=== PATIENT | male | born 1960 | race Caucasian/White ===

== ENCOUNTER 2017-08-29 12:41 | Inpatient (IN) | payer MEDICAID ==
[~2017-08-29] VITALS: Ht 182.9 cm; Wt 95.8 kg
[2017-08-29] MEDS ORDERED: MORPHINE SULF INJ 2 MG/ML SYRINGE 1ML IV ONE ×4 (13:00→13:09)
[2017-08-29] MEDS ORDERED: ONDANSETRON HCL 4 MG/2 ML VIAL IV ONE ×2 (13:00→13:30)
[2017-08-29] MEDS ORDERED: ASPirin 81 mg TAB PO ONE (13:00)
[2017-08-29] MEDS ORDERED: MORPHINE SULF INJ 2 MG/ML SYRINGE 1ML ONE (13:04)
[2017-08-29 13:16] LABS: Basophils # (auto) 0.1 uL; Eosinophils # (auto) 0.1 uL; Neutrophils # (auto) 6.6 uL; Nucleated Red Blood Cells % 0.1 %
[2017-08-29 13:18] LABS: Basophils % (auto) 0.7 % (0.0-2.0); Eosinophils % (auto) 0.6 % (0.0-7.0); Hematocrit 53.8 % (41.0-53.0); Hemoglobin 18.7 g/dL (13.5-17.5); Lymphocytes % (auto) 28.2 % (10.0-50.0); Mean Corpuscular Hemoglobin 34.7 pg (28.0-32.0); Mean Corpuscular Hgb Conc. 34.8 g/dL (32.0-36.0); Mean Corpuscular Volume 99.7 fL (80.0-100.0); Mean Platelet Volume 8.6 fL (6.9-10.8); Monocytes # (auto) 0.8 uL; Monocytes % (auto) 7.7 % (0.0-12.0); Neutrophils % (auto) 62.8 % (37.0-80.0); Platelet Count (auto) 227 10^3/uL (140-450); White Blood Cell 10.6 10^3/uL (4.4-10.8)
[2017-08-29] MEDS ORDERED: HYDROmorphone HCL 2 MG/ML VL IV ONE ×2 (13:30→16:45)
[2017-08-29 13:33] LABS: INR 0.95 (0.9-1.15); Partial Thromboplastin Time 33.9 sec (22.64-33.71); Prothrombin Time 10.3 sec (9.37-12.3)
[2017-08-29] MEDS ORDERED: IOHEXOL 350 MG/ML 100ML IJ ONE (13:34)
[2017-08-29 13:36] LABS: Anion Gap 15 (5-15); Blood Urea Nitrogen 8 mg/dL (7-18); Carbon Dioxide 19 mmol/L (21-32); Chloride 101 mmol/L (98-107); Glucose 144 mg/dL (74-106); Sodium 135 mmol/L (136-145)
[2017-08-29 13:37] LABS: Albumin 3.4 g/dL (3.4-5.0); Alkaline Phosphatase 109 U/L (45-117); Aspartate Aminotransferase 13 U/L (15-37); BUN/Creatinine Ratio 8.3; Calcium 8.8 mg/dL (8.5-10.1); GFR African American 104 mL/min; GFR Non-African American 86 mL/min; Total Protein 8.1 g/dL (6.4-8.2)
[2017-08-29 13:38] LABS: Potassium 2.9 mmol/L (3.5-5.1)
[2017-08-29] MEDS: ESMOLOL HCL-NS 10MG/ML 250 ML IV SCH ×3 (13:45→16:00)
[2017-08-29] MEDS ORDERED: ESMOLOL HCL (10MG/ML) 10 ML VIAL IV ONE (13:45)
[2017-08-29] MEDS ORDERED: POTASSIUM CHL 20 Meq TABLET PO ONE ×2 (13:45→14:00)
[2017-08-29] MEDS ORDERED: POTASSIUM CHL 20MEQ/100ML 100 ML IV ONE ×2 (13:54→14:00)
[2017-08-29 14:01] LABS: Temperature: 21.9 C (20.0-25.0)
[2017-08-29] MEDS ORDERED: cefTRIAXone 1GM/50ML D5W 50 ML IV ONE (14:45)
[2017-08-29] MEDS: HEPARIN DRIP/D5W 100UNITS/ML 250 ML IV SCH (15:03)
[2017-08-29] MEDS ORDERED: SODIUM CHLORIDE 0.9% 1,000 ML IV SCH ×2 (15:03→22:00)
[2017-08-29] MEDS ORDERED: ACETAMINOPHEN 500 MG TAB PO PRN (15:15)
[2017-08-29] MEDS ORDERED: TEMAZEPAM 15 MG CAP PO PRN (15:15)
[2017-08-29] MEDS ORDERED: ALBUTEROL SULF 2.5 MG/0.5ML(0.5%) NEB SOLN NEB PRN (15:15)
[2017-08-29] MEDS ORDERED: DEXTROSE (50%) 50ML SYRG IV PRN (15:15)
[2017-08-29] MEDS ORDERED: NITROGLYCERIN 0.4 MG SL TAB SL PRN ×2 (15:15→18:30)
[2017-08-29] MEDS ORDERED: HEPARIN SODIUM (PORCINE) 5000 UNITS/ML 1ML VIAL IV ONE (15:15)
[2017-08-29] MEDS ORDERED: LORazepam 0.5 MG TAB PO PRN (15:15)
[2017-08-29] MEDS ORDERED: LACTULOSE 20Gm/30ML SOLN PO PRN (15:15)
[2017-08-29] MEDS ORDERED: MORPHINE SULF INJ 2 MG/ML SYRINGE 1ML IV PRN ×2 (15:15→18:30)
[2017-08-29 15:28] LABS: Lactic Acid w/Reflex 2.3 mmol/L (0.4-2.0)
[2017-08-29] MEDS ORDERED: LIDOCAINE 2%HCL (LOCAL ANESTH.) INJ 20ML MDV ONE (15:38)
[2017-08-29] MEDS ORDERED: IODIXANOL 320MG/ML 100ML BTL IV ONE (15:38)
[2017-08-29] MEDS ORDERED: KETOROLAC TROMETH 30 MG/ML 1ML VIAL ONE (16:21)
[2017-08-29] MEDS ORDERED: KETOROLAC TROMETH 30 MG/ML 1ML VIAL IV ONE (16:30)
[2017-08-29] MEDS: HYDROmorphone HCL 2 MG/ML VL ONE ×2 (16:33→16:41)
[2017-08-29] MEDS ORDERED: SODIUM CHL 0.9% 50 ML ONE (16:55)
[2017-08-29] MEDS ORDERED: ANGIOMAX 250 MG VIAL IV ONE (16:55)
[2017-08-29] MEDS ORDERED: ASPirin-EC 325mg tab PO ONE (17:45)
[2017-08-29] MEDS ORDERED: CLOPIDOGREL 300 MG TAB PO ONE (17:45)
[2017-08-29] MEDS ORDERED: ASPirin 325 MG TAB ONE (17:53)
[2017-08-29] MEDS ORDERED: ONDANSETRON HCL 4 MG/2 ML VIAL IV PRN (18:30)
[2017-08-29] MEDS ORDERED: ZOLPIDEM TARTRATE 5 MG TAB PO PRN (18:30)
[2017-08-29] MEDS: ALBUTEROL SULF 2.5 MG/0.5ML(0.5%) NEB SOLN NEB SCH ×2 (19:41→23:44)
[2017-08-29] MEDS: NITROGLYCERIN 0.2MG/HR TOPICAL PATCH TD SCH (20:16)
[2017-08-29] MEDS: PANTOPRAZOLE 40 MG TAB PO SCH (20:17)
[2017-08-29 20:22] VITALS: BP 124/76
[2017-08-29 20:30] VITALS: BP 171/107
[2017-08-29] MEDS: AZITHROMYCIN 500MG/D5W 250ML 250 ML IV SCH (21:26)
[2017-08-29] MEDS: SOD CHL 0.9%/ KCL 40MEQ 1,000 ML IV SCH (21:26)
[2017-08-29] MEDS: ACCU-CHEK COMFORT CURVE STRIP VI SCH ×2 (21:44→23:51)
[2017-08-29 21:45] VITALS: BP 122/75
[2017-08-29] MEDS: METOPROLOL TARTRATE 25 MG TAB PO SCH (22:09)
[2017-08-29] MEDS: ATORVASTATIN 20 MG TAB PO SCH (22:09)
[2017-08-29] MEDS: HYDROcodone-ACET 5/325MG TAB PO PRN (23:57)
[2017-08-30] MEDS: SOD CHL 0.9%/ KCL 40MEQ 1,000 ML IV SCH ×3 (01:45→21:45)
[2017-08-30] MEDS: MORPHINE SULF INJ 2 MG/ML SYRINGE 1ML IV PRN ×5 (02:10→20:23)
[2017-08-30 03:33] LABS: REFLEX LACTIC ACID YES OR NO YES
[2017-08-30 05:00] VITALS: BP 128/79
[2017-08-30] MEDS ORDERED: SODIUM CHLORIDE 0.9 % NEB SOLN 3ML NEB ONE (05:50)
[2017-08-30] MEDS: ACCU-CHEK COMFORT CURVE STRIP VI SCH ×3 (06:00→18:00)
[2017-08-30] MEDS: ALBUTEROL SULF 2.5 MG/0.5ML(0.5%) NEB SOLN NEB SCH ×3 (07:30→19:24)
[2017-08-30] MEDS: cefTRIAXone 1GM/50ML D5W 50 ML IV SCH (08:57)
[2017-08-30 09:00] VITALS: BP 134/88
[2017-08-30] MEDS ORDERED: CLOPIDOGREL BISULFATE 75 MG TAB PO ONE (10:00)
[2017-08-30] MEDS ORDERED: ASPirin 81 mg TAB PO SCH (10:00)
[2017-08-30] MEDS: CLOPIDOGREL BISULFATE 75 MG TAB PO SCH (10:26)
[2017-08-30] MEDS: PANTOPRAZOLE 40 MG TAB PO SCH (10:26)
[2017-08-30] MEDS: ASPirin 81 mg TAB PO SCH (10:27)
[2017-08-30] MEDS: LORazepam 0.5 MG TAB PO PRN ×2 (10:27→21:46)
[2017-08-30] MEDS: METOPROLOL TARTRATE 25 MG TAB PO SCH ×2 (10:27→21:47)
[2017-08-30] MEDS: HYDROcodone-ACET 5/325MG TAB PO PRN ×2 (10:28→19:35)
[2017-08-30] MEDS: NITROGLYCERIN 0.2MG/HR TOPICAL PATCH TD SCH (10:29)
[2017-08-30] MEDS: AZITHROMYCIN 500MG/D5W 250ML 250 ML IV SCH (10:30)
[2017-08-30 11:33] LABS: Cholesterol 121 mg/dL (< 200); HDL Cholesterol 39 mg/dL (40-59); LDL Cholesterol 81 mg/dL (< 100); Triglycerides 77 mg/dL (< 150)
[2017-08-30 13:00] VITALS: BP 142/86
[2017-08-30] MEDS: HEPARIN DRIP/D5W 100UNITS/ML 250 ML IV SCH (15:03)
[2017-08-30 16:30] LABS: Albumin 2.7 g/dL (3.4-5.0); BUN/Creatinine Ratio 9.4; Bilirubin, Total 0.5 mg/dL (0.2-1.0); Calcium 8.4 mg/dL (8.5-10.1); Total Protein 6.6 g/dL (6.4-8.2)
[2017-08-30 16:37] LABS: Basophils # (auto) 0 uL; Eosinophils # (auto) 0.2 uL; Hemoglobin 15.9 g/dL (13.5-17.5); Lymphocytes # (auto) 2.1 uL; Monocytes # (auto) 0.6 uL; Platelet Count (auto) 188 10^3/uL (140-450); Red Cell Distribution Width 13.8 % (11.8-14.3); White Blood Cell 7.1 10^3/uL (4.4-10.8)
[2017-08-30 16:40] LABS: Basophils % (auto) 0.3 % (0.0-2.0); Eosinophils % (auto) 3.3 % (0.0-7.0); Hematocrit 47.3 % (41.0-53.0); Lymphocytes % (auto) 29.3 % (10.0-50.0); Mean Corpuscular Hemoglobin 34.2 pg (28.0-32.0); Mean Corpuscular Hgb Conc. 33.6 g/dL (32.0-36.0); Mean Corpuscular Volume 101.8 fL (80.0-100.0); Mean Platelet Volume 8.2 fL (6.9-10.8); Monocytes % (auto) 8.6 % (0.0-12.0); Neutrophils # (auto) 4.2 uL; Neutrophils % (auto) 58.5 % (37.0-80.0); Nucleated Red Blood Cells % 0.1 %
[2017-08-30 17:00] VITALS: BP 157/99
[2017-08-30 19:20] LABS: Macrocytosis Slight; Platelet Estimate Adequate
[2017-08-30 20:00] VITALS: BP 148/97
[2017-08-30] MEDS: IBUPROFEN 600 MG TAB PO SCH (21:46)
[2017-08-30] MEDS: COLCHICINE 0.6 MG CAP PO SCH (21:46)
[2017-08-30] MEDS: ATORVASTATIN 20 MG TAB PO SCH (21:46)
[2017-08-30 22:30] VITALS: BP 148/87
[2017-08-31] MEDS: ACCU-CHEK COMFORT CURVE STRIP VI SCH ×3 (00:22→12:00)
[2017-08-31] MEDS: MORPHINE SULF INJ 2 MG/ML SYRINGE 1ML IV PRN ×2 (00:26→04:27)
[2017-08-31] MEDS: ALBUTEROL SULF 2.5 MG/0.5ML(0.5%) NEB SOLN NEB SCH ×2 (00:36→07:35)
[2017-08-31 05:00] VITALS: BP 148/93
[2017-08-31] MEDS: IBUPROFEN 600 MG TAB PO SCH (05:55)
[2017-08-31 06:13] LABS: Basophils # (auto) 0 uL; Eosinophils # (auto) 0.3 uL; Mean Corpuscular Volume 100.2 fL (80.0-100.0); Monocytes # (auto) 0.5 uL
[2017-08-31 06:15] LABS: Basophils % (auto) 0.4 % (0.0-2.0); Eosinophils % (auto) 5.3 % (0.0-7.0); Hemoglobin 14.8 g/dL (13.5-17.5); Lymphocytes % (auto) 32.5 % (10.0-50.0); Mean Corpuscular Hemoglobin 34.6 pg (28.0-32.0); Mean Corpuscular Hgb Conc. 34.5 g/dL (32.0-36.0); Mean Platelet Volume 8.3 fL (6.9-10.8); Monocytes % (auto) 8.1 % (0.0-12.0); Neutrophils # (auto) 3.2 uL; Neutrophils % (auto) 53.7 % (37.0-80.0); Platelet Count (auto) 180 10^3/uL (140-450)
[2017-08-31 07:08] LABS: Albumin 2.7 g/dL (3.4-5.0); BUN/Creatinine Ratio 8.2; Bilirubin, Total 0.6 mg/dL (0.2-1.0); Calcium 8.4 mg/dL (8.5-10.1); Potassium 3.8 mmol/L (3.5-5.1); Total Protein 6.3 g/dL (6.4-8.2)
[2017-08-31] MEDS: SOD CHL 0.9%/ KCL 40MEQ 1,000 ML IV SCH (07:45)
[2017-08-31] MEDS ORDERED: MORPHINE SULF INJ 2 MG/ML SYRINGE 1ML IV ONE (08:50)
[2017-08-31] MEDS: cefTRIAXone 1GM/50ML D5W 50 ML IV SCH (08:50)
[2017-08-31] MEDS: COLCHICINE 0.6 MG CAP PO SCH (08:55)
[2017-08-31] MEDS: METOPROLOL TARTRATE 25 MG TAB PO SCH (08:55)
[2017-08-31] MEDS: NITROGLYCERIN 0.2MG/HR TOPICAL PATCH TD SCH (08:55)
[2017-08-31] MEDS: CLOPIDOGREL BISULFATE 75 MG TAB PO SCH (08:55)
[2017-08-31] MEDS: PANTOPRAZOLE 40 MG TAB PO SCH (08:55)
[2017-08-31] MEDS: ASPirin 81 mg TAB PO SCH (08:55)
[2017-08-31 09:00] VITALS: BP 146/103
[2017-08-31] MEDS: LORazepam 0.5 MG TAB PO PRN (09:17)
[2017-08-31] MEDS: AZITHROMYCIN 500MG/D5W 250ML 250 ML IV SCH (10:55)
== END 2017-08-31 13:00 | disposition home or self-care (01) | DRG 144 ==
LOC: ER 12:41 → TELE-CENTR 12:42 → CENTRAL 08-31 05:44
PROVIDERS: ADMIT Internal Medicine Cardiovascular Disease; ATTEND Internal Medicine
PROC: 4A023N7 Measurement of Cardiac Sampling and Pressure, Left Heart, Percutaneous Approach (ICD-10-PCS; principal; 2017-08-29)
PROC: B41F1ZZ Fluoroscopy of Right Lower Extremity Arteries using Low Osmolar Contrast (ICD-10-PCS; 2017-08-29)
PROC: B2111ZZ Fluoroscopy of Multiple Coronary Arteries using Low Osmolar Contrast (ICD-10-PCS; 2017-08-29)
PROC: B240ZZ3 Ultrasonography of Single Coronary Artery, Intravascular (ICD-10-PCS; 2017-08-29)
DX: J40 Bronchitis, not specified as acute or chronic (principal); J18.9 Pneumonia, unspecified organism; I10 Essential (primary) hypertension; R09.1 Pleurisy; J21.9 Acute bronchiolitis, unspecified; E87.6 Hypokalemia; I25.10 Atherosclerotic heart disease of native coronary artery without angina pectoris; E78.5 Hyperlipidemia, unspecified; F17.210 Nicotine dependence, cigarettes, uncomplicated; F41.9 Anxiety disorder, unspecified; R00.0 Tachycardia, unspecified; R73.03 Prediabetes; Z79.02 Long term (current) use of antithrombotics/antiplatelets; Z79.82 Long term (current) use of aspirin; Z91.14 Patient's other noncompliance with medication regimen; Z95.5 Presence of coronary angioplasty implant and graft; Z82.49 Family history of ischemic heart disease and other diseases of the circulatory system; I25.2 Old myocardial infarction; Z91.19 Patient's noncompliance with other medical treatment and regimen
CPT/HCPCS: 92978; 93458; 96365; 96375; 99285; G0278; 36415; 71010; 71275; 80053; 80061; 82550; 82962; 83036; 83605; 83735; 83880; 84443; 84484; 85025; 85610; 85652; 85730; 86141; 87040; 93005; 93306; 94640; 99152; 99153; C1887; J0696; J1885; J2405; J3480; J3490; Q9967

== ENCOUNTER 2017-09-27 15:02 | Emergency (ER) | payer MEDICAID ==
[~2017-09-27] VITALS: Ht 182.9 cm; Wt 90.7 kg
[2017-09-27 16:45] LABS: Alanine Aminotransferase 41 U/L (16-61); Albumin 3.6 g/dL (3.4-5.0); Alkaline Phosphatase 95 U/L (45-117); Anion Gap 5 (5-15); Aspartate Aminotransferase 29 U/L (15-37); BUN/Creatinine Ratio 10.4; Bilirubin, Total 0.4 mg/dL (0.2-1.0); Blood Urea Nitrogen 11 mg/dL (7-18); Calcium 8.3 mg/dL (8.5-10.1); Carbon Dioxide 26 mmol/L (21-32); Chloride 108 mmol/L (98-107); GFR African American 93 mL/min; GFR Non-African American 77 mL/min; Glucose 96 mg/dL (74-106); Magnesium 1.9 mg/dL (1.6-2.6); Sodium 139 mmol/L (136-145); Total Protein 7.6 g/dL (6.4-8.2)
[2017-09-27 16:47] LABS: INR 0.95 (0.9-1.15); Partial Thromboplastin Time 30.1 sec (22.64-33.71); Prothrombin Time 10.3 sec (9.37-12.3)
[2017-09-27 16:50] LABS: Basophils # (auto) 0 uL; Basophils % (auto) 0.1 % (0.0-2.0); Eosinophils # (auto) 0 uL; Eosinophils % (auto) 0.2 % (0.0-7.0); Hematocrit 43.2 % (41.0-53.0); Hemoglobin 14.8 g/dL (13.5-17.5); Lymphocytes # (auto) 0.8 uL; Lymphocytes % (auto) 13.1 % (10.0-50.0); Mean Corpuscular Hemoglobin 33.8 pg (28.0-32.0); Mean Corpuscular Hgb Conc. 34.2 g/dL (32.0-36.0); Mean Corpuscular Volume 98.8 fL (80.0-100.0); Monocytes # (auto) 0.4 uL; Monocytes % (auto) 6.2 % (0.0-12.0); Neutrophils # (auto) 4.7 uL; Neutrophils % (auto) 80.4 % (37.0-80.0); Platelet Count (auto) 165 10^3/uL (140-450); Red Blood Cells 4.37 10^6/uL (4.5-5.90); Red Cell Distribution Width 13.4 % (11.8-14.3); White Blood Cell 5.9 10^3/uL (4.4-10.8)
[2017-09-27 22:56] VITALS: BP 126/82
[2017-09-27] MEDS ORDERED: LORazepam 0.5 MG TAB PO ONE (23:00)
[2017-09-27] MEDS ORDERED: ONDANSETRON ODT 4 MG TAB PO ONE (23:15)
== END 2017-09-27 23:47 | disposition left against medical advice (07) ==
LOC: ER 15:06
DX: R07.89 Other chest pain (principal); I25.10 Atherosclerotic heart disease of native coronary artery without angina pectoris; E78.5 Hyperlipidemia, unspecified; I10 Essential (primary) hypertension; R11.2 Nausea with vomiting, unspecified; F17.210 Nicotine dependence, cigarettes, uncomplicated; Z98.61 Coronary angioplasty status
CPT/HCPCS: 36415; 71020; 80053; 83735; 84484; 85025; 85610; 85730; 93005; 99285; Q0162

== ENCOUNTER 2017-11-09 23:06 | Emergency (ER) | payer MEDICAID ==
[~2017-11-09] VITALS: Ht 182.9 cm; Wt 99.8 kg
[2017-11-09 23:17] VITALS: BP 112/72
[2017-11-10 01:31] LABS: Basophils # (auto) 0 uL; Basophils % (auto) 0.4 % (0.0-2.0); Eosinophils # (auto) 0.2 uL; Eosinophils % (auto) 2.4 % (0.0-7.0); Mean Platelet Volume 8.4 fL (6.9-10.8); Monocytes # (auto) 0.6 uL
[2017-11-10 01:33] LABS: Hematocrit 42.5 % (41.0-53.0); Hemoglobin 14.4 g/dL (13.5-17.5); Lymphocytes # (auto) 3.4 uL; Lymphocytes % (auto) 44.3 % (10.0-50.0); Mean Corpuscular Hemoglobin 34.6 pg (28.0-32.0); Mean Corpuscular Volume 101.8 fL (80.0-100.0); Monocytes % (auto) 8.2 % (0.0-12.0); Neutrophils # (auto) 3.4 uL; Neutrophils % (auto) 44.7 % (37.0-80.0); Nucleated Red Blood Cells % 0.2 %; Platelet Count (auto) 232 10^3/uL (140-450); Red Cell Distribution Width 17.4 % (11.8-14.3); White Blood Cell 7.6 10^3/uL (4.4-10.8)
[2017-11-10 01:43] LABS: Albumin 3.6 g/dL (3.4-5.0); Calcium 8.4 mg/dL (8.5-10.1); Magnesium 2.7 mg/dL (1.6-2.6); Potassium 3.3 mmol/L (3.5-5.1)
[2017-11-10 01:46] LABS: Bilirubin, Total 0.2 mg/dL (0.2-1.0); Total Protein 7.5 g/dL (6.4-8.2)
[2017-11-10 01:50] LABS: INR 0.92 (0.9-1.15); Partial Thromboplastin Time 27.6 sec (22.64-33.71)
[2017-11-10 02:01] LABS: B-Type Natriuretic Peptide 28.7 pg/mL (0-100)
[2017-11-10 02:02] LABS: Temperature: 20.9 C (20.0-25.0)
== END 2017-11-10 02:53 | disposition left against medical advice (07) ==
LOC: EDBD 23:06 → EDUNIT# 23:06 → ER 23:06
DX: R07.9 Chest pain, unspecified (principal); Z53.21 Procedure and treatment not carried out due to patient leaving prior to being seen by health care provider
CPT/HCPCS: 36415; 71010; 80053; 83735; 83880; 84443; 84484; 85025; 85379; 85610; 85730; 93005

== ENCOUNTER 2018-02-18 21:47 | Emergency (ER) | payer MEDICAID ==
[~2018-02-18] VITALS: Ht 185.4 cm; Wt 99.8 kg
[2018-02-18 21:50] VITALS: BP 136/77
[2018-02-18 22:33] LABS: Basophils # (auto) 0 uL; Eosinophils # (auto) 0.2 uL; Hemoglobin 13.5 g/dL (13.5-17.5); Mean Corpuscular Hgb Conc. 33.7 g/dL (32.0-36.0); White Blood Cell 6.4 10^3/uL (4.4-10.8)
[2018-02-18 22:34] LABS: Basophils % (auto) 0.2 % (0.0-2.0); Eosinophils % (auto) 3.6 % (0.0-7.0); Hematocrit 40.2 % (41.0-53.0); Lymphocytes # (auto) 1.9 uL; Lymphocytes % (auto) 29.2 % (10.0-50.0); Mean Corpuscular Hemoglobin 34.5 pg (28.0-32.0); Mean Corpuscular Volume 102.4 fL (80.0-100.0); Monocytes # (auto) 0.5 uL; Monocytes % (auto) 7.1 % (0.0-12.0); Neutrophils # (auto) 3.8 uL; Neutrophils % (auto) 59.9 % (37.0-80.0); Platelet Count (auto) 165 10^3/uL (140-450); Red Blood Cells 3.92 10^6/uL (4.5-5.90); Red Cell Distribution Width 14.1 % (11.8-14.3)
[2018-02-18 22:40] LABS: Urine Bacteria NONE SEEN /hpf (None Seen); Urine Blood Negative /uL (Negative); Urine Specific Gravity 1.005 (1.001-1.035); Urine WBC 1 /hpf (0 - 3)
[2018-02-18 22:50] LABS: INR 0.92 (0.9-1.15); Partial Thromboplastin Time 25.9 sec (22.64-33.71)
[2018-02-18 22:53] LABS: Albumin 3.4 g/dL (3.4-5.0); Bilirubin, Total 0.5 mg/dL (0.2-1.0); Calcium 8.1 mg/dL (8.5-10.1); Magnesium 2.5 mg/dL (1.6-2.6); Potassium 3.9 mmol/L (3.5-5.1)
[2018-02-18 23:02] LABS: Amphetamine Screen, Urine POSITIVE (NEGATIVE); Barbiturate Scree,Urine NEGATIVE (NEGATIVE); Benzodiazephine Screen, Urine NEGATIVE (NEGATIVE); Cannabinoid Screen, Urine POSITIVE (NEGATIVE); Cocaine Screen, Urine NEGATIVE (NEGATIVE); Opiate Scree,Urine NEGATIVE (NEGATIVE); Phencyclidine Screen, Urine NEGATIVE (NEGATIVE)
== END 2018-02-18 22:46 | disposition left against medical advice (07) ==
LOC: ER 21:47 → EDBD 21:47 → ER 22:46
DX: R07.89 Other chest pain (principal); Z53.21 Procedure and treatment not carried out due to patient leaving prior to being seen by health care provider
CPT/HCPCS: 36415; 80053; 80307; 80320; 81001; 83735; 83880; 84484; 85025; 85610; 85730

== ENCOUNTER 2018-03-06 20:00 | Emergency (ER) | payer MEDICAID ==
[~2018-03-06] VITALS: Ht 182.9 cm; Wt 90.7 kg
[2018-03-06 20:04] VITALS: BP 109/74
[2018-03-06] MEDS ORDERED: ASPirin 81 mg TAB PO ONE (20:15)
[2018-03-06] MEDS ORDERED: SODIUM CHLORIDE 0.9% 1,000 ML IV ONE (20:15)
[2018-03-06 21:12] LABS: Basophils # (auto) 0 uL; Basophils % (auto) 0.5 % (0.0-2.0); Hemoglobin 12.9 g/dL (13.5-17.5); Mean Corpuscular Hemoglobin 34.3 pg (28.0-32.0); Mean Corpuscular Hgb Conc. 33.5 g/dL (32.0-36.0); Mean Corpuscular Volume 102.5 fL (80.0-100.0); Monocytes # (auto) 0.4 uL; Nucleated Red Blood Cells % 0.1 %
[2018-03-06 21:14] LABS: Eosinophils # (auto) 0.3 uL; Eosinophils % (auto) 3.4 % (0.0-7.0); Hematocrit 38.7 % (41.0-53.0); Lymphocytes # (auto) 2.9 uL; Lymphocytes % (auto) 36.9 % (10.0-50.0); Monocytes % (auto) 5.3 % (0.0-12.0); Neutrophils # (auto) 4.3 uL; Neutrophils % (auto) 53.9 % (37.0-80.0); Platelet Count (auto) 206 10^3/uL (140-450); Red Blood Cells 3.77 10^6/uL (4.5-5.90)
[2018-03-06 21:27] LABS: INR 0.9 (0.9-1.15); Partial Thromboplastin Time 28.5 sec (22.64-33.71); Prothrombin Time 9.8 sec (9.37-12.3)
[2018-03-06 21:30] LABS: Albumin 3.3 g/dL (3.4-5.0); Anion Gap 10 (5-15); Blood Urea Nitrogen 21 mg/dL (7-18); Calcium 8.6 mg/dL (8.5-10.1); Carbon Dioxide 22 mmol/L (21-32); Chloride 114 mmol/L (98-107); Glucose 96 mg/dL (74-106); Potassium 3.3 mmol/L (3.5-5.1); Sodium 146 mmol/L (136-145)
[2018-03-06 21:32] LABS: Alanine Aminotransferase 41 U/L (16-61); Aspartate Aminotransferase 41 U/L (15-37); BUN/Creatinine Ratio 19.4; GFR African American 91 mL/min; GFR Non-African American 75 mL/min
[2018-03-06 21:37] LABS: Alkaline Phosphatase 87 U/L (45-117); Bilirubin, Total 0.3 mg/dL (0.2-1.0)
== END 2018-03-07 00:10 | disposition left against medical advice (07) ==
LOC: EDBD 20:00 → ER 20:05
DX: R07.9 Chest pain, unspecified (principal); I10 Essential (primary) hypertension; I25.10 Atherosclerotic heart disease of native coronary artery without angina pectoris; F17.210 Nicotine dependence, cigarettes, uncomplicated; E78.5 Hyperlipidemia, unspecified; Z59.0 Homelessness
CPT/HCPCS: 36415; 71045; 80053; 80320; 83880; 84484; 85025; 85610; 85730; 93005; 94761

== ENCOUNTER 2018-04-16 01:58 | Emergency (ER) | payer MEDICAID, OTHER ==
[~2018-04-16] VITALS: Ht 182.9 cm; Wt 90.7 kg
[2018-04-16 02:34] LABS: Basophils # (auto) 0 uL; Eosinophils # (auto) 0.2 uL; Eosinophils % (auto) 3.6 % (0.0-7.0); Hemoglobin 14.4 g/dL (13.5-17.5); Lymphocytes # (auto) 2.9 uL; Monocytes # (auto) 0.4 uL; Neutrophils # (auto) 2.5 uL
[2018-04-16 02:36] LABS: Basophils % (auto) 0.5 % (0.0-2.0); Hematocrit 42.2 % (41.0-53.0); Lymphocytes % (auto) 47.4 % (10.0-50.0); Mean Corpuscular Hemoglobin 35.2 pg (28.0-32.0); Mean Corpuscular Hgb Conc. 34.1 g/dL (32.0-36.0); Mean Corpuscular Volume 103.3 fL (80.0-100.0); Monocytes % (auto) 7.1 % (0.0-12.0); Neutrophils % (auto) 41.4 % (37.0-80.0); Platelet Count (auto) 209 10^3/uL (140-450); Red Blood Cells 4.09 10^6/uL (4.5-5.90); Red Cell Distribution Width 16.1 % (11.8-14.3); White Blood Cell 6.1 10^3/uL (4.4-10.8)
[2018-04-16 02:56] LABS: Alanine Aminotransferase 30 U/L (16-61); Albumin 3.4 g/dL (3.4-5.0); Anion Gap 8 (5-15); Aspartate Aminotransferase 27 U/L (15-37); BUN/Creatinine Ratio 10.3; Blood Urea Nitrogen 10 mg/dL (7-18); Calcium 8.3 mg/dL (8.5-10.1); Carbon Dioxide 22 mmol/L (21-32); Chloride 115 mmol/L (98-107); GFR African American 103 mL/min; GFR Non-African American 85 mL/min; Glucose 101 mg/dL (74-106); Magnesium 2.2 mg/dL (1.6-2.6); Potassium 3.6 mmol/L (3.5-5.1); Sodium 145 mmol/L (136-145)
[2018-04-16] MEDS ORDERED: ONDANSETRON HCL 4 MG/2 ML VIAL IV ONE (03:00)
[2018-04-16] MEDS ORDERED: MORPHINE SULFATE 8mg/ml INJ SDV IV ONE (03:00)
[2018-04-16 03:04] LABS: Alkaline Phosphatase 83 U/L (45-117); Bilirubin, Total 0.3 mg/dL (0.2-1.0); Total Protein 7.5 g/dL (6.4-8.2)
[2018-04-16 07:30] VITALS: BP 107/66
== END 2018-04-16 07:56 | disposition home or self-care (01) ==
LOC: EDBD 01:58 → ER 02:03
DX: R07.89 Other chest pain (principal); E78.5 Hyperlipidemia, unspecified; I10 Essential (primary) hypertension; I25.10 Atherosclerotic heart disease of native coronary artery without angina pectoris; F17.210 Nicotine dependence, cigarettes, uncomplicated; Z59.0 Homelessness
CPT/HCPCS: 36415; 71045; 80053; 83735; 83880; 84484; 85025; 93005; 94761; 96374; 96375; 99285; J2270; J2405

== ENCOUNTER 2018-10-07 00:35 | Emergency (ER) | payer MEDICAID ==
[~2018-10-07] VITALS: Ht 182.9 cm; Wt 90.7 kg
[2018-10-07] MEDS ORDERED: ASPirin 81 mg TAB PO ONE (01:00)
[2018-10-07 01:54] LABS: Eosinophils # (auto) 0.1 uL; Monocytes # (auto) 0.5 uL; Red Cell Distribution Width 14.1 % (11.8-14.3); White Blood Cell 6.9 10^3/uL (4.4-10.8)
[2018-10-07 01:56] LABS: Basophils # (auto) 0 uL; Basophils % (auto) 0.5 % (0.0-2.0); Eosinophils % (auto) 1.7 % (0.0-7.0); Hematocrit 44.3 % (41.0-53.0); Hemoglobin 14.8 g/dL (13.5-17.5); Lymphocytes # (auto) 2.4 uL; Lymphocytes % (auto) 35.2 % (10.0-50.0); Mean Corpuscular Hemoglobin 35.8 pg (28.0-32.0); Mean Corpuscular Hgb Conc. 33.5 g/dL (32.0-36.0); Mean Corpuscular Volume 106.9 fL (80.0-100.0); Monocytes % (auto) 7.5 % (0.0-12.0); Neutrophils # (auto) 3.8 uL; Neutrophils % (auto) 55.1 % (37.0-80.0); Platelet Count (auto) 183 10^3/uL (140-450); Red Blood Cells 4.15 10^6/uL (4.5-5.90)
[2018-10-07] MEDS ORDERED: ONDANSETRON HCL 4 MG/2 ML VIAL IV ONE (02:00)
[2018-10-07] MEDS ORDERED: MORPHINE SULFATE 4 MG/ML SYR/VIAL IV ONE ×2 (02:00→05:15)
[2018-10-07 02:08] LABS: INR 0.88 (0.9-1.15); Prothrombin Time 9.5 sec (9.27-12.13)
[2018-10-07 02:12] LABS: Alanine Aminotransferase 94 U/L (16-61); Albumin 3.3 g/dL (3.4-5.0); Anion Gap 8 (5-15); Aspartate Aminotransferase 85 U/L (15-37); BUN/Creatinine Ratio 21.9; Blood Urea Nitrogen 23 mg/dL (7-18); Calcium 9.6 mg/dL (8.5-10.1); Carbon Dioxide 25 mmol/L (21-32); Chloride 111 mmol/L (98-107); GFR African American 94 mL/min; GFR Non-African American 77 mL/min; Glucose 79 mg/dL (74-106); Magnesium 2.4 mg/dL (1.6-2.6); Potassium 3.7 mmol/L (3.5-5.1); Sodium 144 mmol/L (136-145)
[2018-10-07 02:17] LABS: Alkaline Phosphatase 77 U/L (45-117); Bilirubin, Total 0.3 mg/dL (0.2-1.0); Total Protein 7.1 g/dL (6.4-8.2)
[2018-10-07] MEDS ORDERED: cefTRIAXone 1GM/50ML D5W 50 ML IV ONE (02:45)
[2018-10-07] MEDS ORDERED: LIDOCAINE 1%HCL (LOCAL ANESTH) 10 ML MDV ONE (04:31)
[2018-10-07] MEDS ORDERED: LIDOCAINE 1% HCL (LOCAL ANESTH.) INJ 20ML MDV IJ ONE (04:45)
[2018-10-07 05:41] LABS: Urine Amorphous Crystal FEW /hpf (None Seen); Urine Bacteria FEW /hpf (None Seen); Urine Blood Negative /uL (Negative); Urine Specific Gravity 1.011 (1.001-1.035); Urine WBC <1 /hpf (0 - 3)
[2018-10-07 05:59] LABS: Amphetamine Screen, Urine NEGATIVE (NEGATIVE); Barbiturate Scree,Urine NEGATIVE (NEGATIVE); Benzodiazephine Screen, Urine NEGATIVE (NEGATIVE); Cannabinoid Screen, Urine POSITIVE (NEGATIVE); Cocaine Screen, Urine NEGATIVE (NEGATIVE); Opiate Scree,Urine NEGATIVE (NEGATIVE); Phencyclidine Screen, Urine NEGATIVE (NEGATIVE)
[2018-10-07 06:00] VITALS: BP 152/100
== END 2018-10-07 06:19 | disposition home or self-care (01) ==
LOC: ER 00:35 → EDBD 00:35 → ER 06:19
DX: S51.812A Laceration without foreign body of left forearm, initial encounter (principal); R07.89 Other chest pain; I25.10 Atherosclerotic heart disease of native coronary artery without angina pectoris; E78.5 Hyperlipidemia, unspecified; I10 Essential (primary) hypertension; F17.210 Nicotine dependence, cigarettes, uncomplicated; F12.90 Cannabis use, unspecified, uncomplicated; Z59.0 Homelessness; Z98.61 Coronary angioplasty status; Y07.02 Wife, perpetrator of maltreatment and neglect; Y93.89 Activity, other specified; Y99.8 Other external cause status; Y92.89 Other specified places as the place of occurrence of the external cause
CPT/HCPCS: 12002; 36415; 71045; 80053; 80307; 81001; 83735; 84484; 85025; 85610; 85730; 93005; 94761; 96365; 96375; 96376; 99285; J0696; J2001; J2270; J2405

== ENCOUNTER 2018-10-24 08:43 | Emergency (ER) | payer MEDICAID ==
[~2018-10-24] VITALS: Ht 190.5 cm; Wt 90.7 kg
[2018-10-24 08:59] VITALS: BP 126/81
== END 2018-10-24 09:26 | disposition home or self-care (01) ==
LOC: ER 08:43
DX: S51.812D Laceration without foreign body of left forearm, subsequent encounter (principal); E78.5 Hyperlipidemia, unspecified; I10 Essential (primary) hypertension; I25.810 Atherosclerosis of coronary artery bypass graft(s) without angina pectoris; F17.210 Nicotine dependence, cigarettes, uncomplicated; F12.10 Cannabis abuse, uncomplicated; X58.XXXD Exposure to other specified factors, subsequent encounter

== ENCOUNTER 2018-11-13 18:02 | Emergency (ER) | payer MEDICAID ==
[~2018-11-13] VITALS: Ht 180.3 cm; Wt 95.3 kg
[2018-11-13] MEDS ORDERED: SODIUM CHLORIDE 0.9% 1,000 ML IVB ONE (18:23)
[2018-11-13] MEDS ORDERED: SODIUM CHLORIDE 0.9% 1,000 ML IV ONE (22:45)
[2018-11-13] MEDS ORDERED: IPRATROPIUM BROM 0.5 MG/2.5ML INH SOL NEB ONE (22:45)
[2018-11-13] MEDS ORDERED: ALBUTEROL SULF 2.5 MG/0.5ML(0.5%) NEB SOLN NEB ONE (22:45)
[2018-11-13 23:01] LABS: Eosinophils # (auto) 0.2 uL; Hemoglobin 14.8 g/dL (13.5-17.5); Monocytes # (auto) 0.5 uL; Nucleated Red Blood Cells % 0.1 %
[2018-11-13 23:04] LABS: Basophils # (auto) 0 uL; Basophils % (auto) 0.7 % (0.0-2.0); Eosinophils % (auto) 3.1 % (0.0-7.0); Hematocrit 43.6 % (41.0-53.0); Lymphocytes # (auto) 2.3 uL; Lymphocytes % (auto) 37.1 % (10.0-50.0); Mean Corpuscular Hemoglobin 36.5 pg (28.0-32.0); Mean Corpuscular Volume 107.3 fL (80.0-100.0); Neutrophils # (auto) 3.2 uL; Neutrophils % (auto) 51.1 % (37.0-80.0); Platelet Count (auto) 189 10^3/uL (140-450); Red Blood Cells 4.07 10^6/uL (4.5-5.90); Red Cell Distribution Width 13.4 % (11.8-14.3); White Blood Cell 6.3 10^3/uL (4.4-10.8)
[2018-11-13] MEDS ORDERED: METOPROLOL TARTRATE 1MG/1ML-5ML VIAL IV ONE (23:15)
[2018-11-13 23:24] LABS: Albumin 3.2 g/dL (3.4-5.0); Anion Gap 13 (5-15); BUN/Creatinine Ratio 14.9; Blood Urea Nitrogen 15 mg/dL (7-18); Calcium 8.3 mg/dL (8.5-10.1); Carbon Dioxide 22 mmol/L (21-32); Chloride 106 mmol/L (98-107); GFR African American 98 mL/min; GFR Non-African American 81 mL/min; Glucose 98 mg/dL (74-106); Magnesium 1.6 mg/dL (1.6-2.6); Potassium 3.5 mmol/L (3.5-5.1); Sodium 141 mmol/L (136-145)
[2018-11-13 23:29] LABS: Alanine Aminotransferase 91 U/L (16-61); Alkaline Phosphatase 82 U/L (45-117); Aspartate Aminotransferase 74 U/L (15-37); Bilirubin, Total 0.2 mg/dL (0.2-1.0)
[2018-11-13 23:47] LABS: INR 0.88 (0.9-1.15); Partial Thromboplastin Time 28.4 sec (23.78-33.04); Prothrombin Time 9.5 sec (9.27-12.13)
[2018-11-14] MEDS ORDERED: DILTIAZEM HCL 25 MG/5 ML VIAL IV ONE
[2018-11-14] MEDS ORDERED: DILTIAZEM HCL 120MG ER CAP PO ONE
[2018-11-14] MEDS ORDERED: IOHEXOL 350 MG/ML 100ML IJ ONE (02:17)
[2018-11-14 02:24] LABS: Urine Bacteria NONE SEEN /hpf (None Seen); Urine Blood Negative /uL (Negative); Urine Specific Gravity 1.006 (1.001-1.035); Urine WBC 1 /hpf (0 - 3)
[2018-11-14 02:36] LABS: Amphetamine Screen, Urine NEGATIVE (NEGATIVE); Barbiturate Scree,Urine NEGATIVE (NEGATIVE); Benzodiazephine Screen, Urine NEGATIVE (NEGATIVE); Cannabinoid Screen, Urine POSITIVE (NEGATIVE); Cocaine Screen, Urine NEGATIVE (NEGATIVE); Opiate Scree,Urine NEGATIVE (NEGATIVE); Phencyclidine Screen, Urine NEGATIVE (NEGATIVE)
[2018-11-14] MEDS ORDERED: NITROGLYCERIN 0.4 MG SL TAB SL ONE (06:15)
[2018-11-14 07:30] VITALS: BP 166/96
[2018-11-14] MEDS ORDERED: THIAMINE INJ 100 MG, MULTIPLE VITAMIN 10 ML, FOLIC ACID 1 MG, MAGNESIUM SULF SDV 50% 8 ... IV SCH ×5 (12:00)
== END 2018-11-14 08:09 | disposition home or self-care (01) ==
LOC: EDBD 18:02 → ER 18:10
DX: R07.89 Other chest pain (principal); I10 Essential (primary) hypertension; E78.5 Hyperlipidemia, unspecified; F17.210 Nicotine dependence, cigarettes, uncomplicated; F12.10 Cannabis abuse, uncomplicated; Z59.0 Homelessness; Z98.61 Coronary angioplasty status; F10.920 Alcohol use, unspecified with intoxication, uncomplicated; Y90.0 Blood alcohol level of less than 20 mg/100 ml
CPT/HCPCS: 36415; 71045; 71275; 80053; 80307; 80320; 81001; 83735; 83880; 84443; 84484; 85025; 85379; 85610; 85730; 93005; 94640; 94761; 96374; 99284; J7030; J7040; J7611; J7644; Q9967

== ENCOUNTER 2018-11-16 17:49 | Emergency (ER) | payer MEDICAID ==
[~2018-11-16] VITALS: Ht 172.7 cm; Wt 77.1 kg
[2018-11-16] MEDS ORDERED: SODIUM CHLORIDE 0.9% 1,000 ML IVB ONE (18:01)
[2018-11-16] MEDS ORDERED: KETOROLAC TROMETH 30 MG/ML 1ML VIAL IV ONE (18:15)
[2018-11-16 20:02] LABS: Basophils # (auto) 0 uL; Basophils % (auto) 0.4 % (0.0-2.0); Eosinophils # (auto) 0.2 uL; Lymphocytes # (auto) 2.6 uL; Mean Corpuscular Hemoglobin 36.2 pg (28.0-32.0); Nucleated Red Blood Cells % 0.1 %
[2018-11-16 20:04] LABS: Eosinophils % (auto) 3.3 % (0.0-7.0); Hematocrit 49.2 % (41.0-53.0); Hemoglobin 16.7 g/dL (13.5-17.5); Mean Corpuscular Volume 106.6 fL (80.0-100.0); Monocytes # (auto) 0.4 uL; Monocytes % (auto) 6.3 % (0.0-12.0); Neutrophils # (auto) 3.6 uL; Platelet Count (auto) 210 10^3/uL (140-450); Red Blood Cells 4.61 10^6/uL (4.5-5.90); Red Cell Distribution Width 13.7 % (11.8-14.3); White Blood Cell 6.9 10^3/uL (4.4-10.8)
[2018-11-16 20:19] LABS: Albumin 3.6 g/dL (3.4-5.0); BUN/Creatinine Ratio 13.3; Calcium 8.2 mg/dL (8.5-10.1); Potassium 3.6 mmol/L (3.5-5.1)
[2018-11-16 20:24] LABS: Bilirubin, Total 0.3 mg/dL (0.2-1.0); Total Protein 7.7 g/dL (6.4-8.2)
[2018-11-16] MEDS ORDERED: ACETAMINOPHEN 325 MG TAB PO ONE (22:15)
[2018-11-16] MEDS ORDERED: THIAMINE 100mg/ml INJ (200mg/2ml VIAL) ONE (23:46)
[2018-11-16] MEDS ORDERED: MVI in SODIUM CHLORIDE 0.9% 1,010 ML ONE (23:46)
[2018-11-17 00:35] VITALS: BP 142/81
[2018-11-17] MEDS ORDERED: THIAMINE INJ 100 MG, MULTIPLE VITAMIN 10 ML, FOLIC ACID 1 MG, MAGNESIUM SULF SDV 50% 8 ... IV ONE ×5 (12:00)
== END 2018-11-17 01:36 | disposition left against medical advice (07) ==
LOC: EDBD 17:49 → ER 17:51
DX: F10.920 Alcohol use, unspecified with intoxication, uncomplicated (principal); R07.89 Other chest pain; R10.32 Left lower quadrant pain; Y90.0 Blood alcohol level of less than 20 mg/100 ml; I10 Essential (primary) hypertension; E78.5 Hyperlipidemia, unspecified; F17.210 Nicotine dependence, cigarettes, uncomplicated; F12.10 Cannabis abuse, uncomplicated; Z86.73 Personal history of transient ischemic attack (TIA), and cerebral infarction without residual deficits; Z59.0 Homelessness
CPT/HCPCS: 36415; 80053; 80320; 85025; 94761; 96361; 96365; 96366; 96375; 99283; J1885; J3411; J3475; J7030

== ENCOUNTER 2018-11-23 20:53 | Emergency (ER) | payer MEDICAID ==
[~2018-11-23] VITALS: Ht 177.8 cm; Wt 90.7 kg
[2018-11-23] MEDS ORDERED: MVI in SODIUM CHLORIDE 0.9% 1,010 ML ONE (23:03)
[2018-11-23] MEDS ORDERED: THIAMINE 100mg/ml INJ (200mg/2ml VIAL) ONE (23:13)
[2018-11-23 23:17] LABS: Alanine Aminotransferase 74 U/L (16-61); Albumin 3.5 g/dL (3.4-5.0); Anion Gap 10 (5-15); Aspartate Aminotransferase 61 U/L (15-37); Blood Urea Nitrogen 18 mg/dL (7-18); Calcium 10.2 mg/dL (8.5-10.1); Carbon Dioxide 22 mmol/L (21-32); Chloride 108 mmol/L (98-107); Glucose 95 mg/dL (74-106); Potassium 3.3 mmol/L (3.5-5.1); Sodium 140 mmol/L (136-145)
[2018-11-23 23:22] LABS: Alkaline Phosphatase 86 U/L (45-117); BUN/Creatinine Ratio 15.1; Bilirubin, Total 0.3 mg/dL (0.2-1.0); GFR African American 81 mL/min; GFR Non-African American 67 mL/min; Total Protein 7.3 g/dL (6.4-8.2)
[2018-11-23] MEDS ORDERED: THIAMINE HCL 100 MG TAB ONE (23:25)
[2018-11-24 00:10] LABS: Basophils # (auto) 0 uL; Basophils % (auto) 0.6 % (0.0-2.0); Eosinophils # (auto) 0.2 uL; Eosinophils % (auto) 3.1 % (0.0-7.0); Hematocrit 45.8 % (41.0-53.0); Hemoglobin 15.2 g/dL (13.5-17.5); Lymphocytes # (auto) 2.5 uL; Lymphocytes % (auto) 34.9 % (10.0-50.0); Mean Corpuscular Hemoglobin 35.5 pg (28.0-32.0); Mean Corpuscular Hgb Conc. 33.1 g/dL (32.0-36.0); Mean Corpuscular Volume 107.4 fL (80.0-100.0); Monocytes # (auto) 0.6 uL; Monocytes % (auto) 7.9 % (0.0-12.0); Neutrophils # (auto) 3.9 uL; Neutrophils % (auto) 53.5 % (37.0-80.0); Platelet Count (auto) 186 10^3/uL (140-450); Red Blood Cells 4.27 10^6/uL (4.5-5.90); Red Cell Distribution Width 13.7 % (11.8-14.3); White Blood Cell 7.2 10^3/uL (4.4-10.8)
[2018-11-24] MEDS ORDERED: POTASSIUM CHL 20 Meq TABLET PO ONE (03:00)
[2018-11-24 05:46] VITALS: BP 111/71
[2018-11-24] MEDS ORDERED: THIAMINE INJ 100 MG, MULTIPLE VITAMIN 10 ML, FOLIC ACID 1 MG, MAGNESIUM SULF SDV 50% 8 ... IV SCH ×5 (12:00)
== END 2018-11-24 08:34 | disposition home or self-care (01) ==
LOC: EDBD 20:53 → ER 20:53
DX: R51 Headache (principal); F10.920 Alcohol use, unspecified with intoxication, uncomplicated; F17.210 Nicotine dependence, cigarettes, uncomplicated; F12.10 Cannabis abuse, uncomplicated; I10 Essential (primary) hypertension; I25.2 Old myocardial infarction; Y90.0 Blood alcohol level of less than 20 mg/100 ml; E78.5 Hyperlipidemia, unspecified; Z98.61 Coronary angioplasty status; Z86.73 Personal history of transient ischemic attack (TIA), and cerebral infarction without residual deficits; Z59.0 Homelessness
CPT/HCPCS: 36415; 70450; 80053; 80320; 84484; 85025; 93005; 96365; 96366; 99284; J3411; J3475; J7030

== ENCOUNTER 2018-12-14 11:31 | Emergency (ER) | payer MEDICAID ==
[~2018-12-14] VITALS: Ht 175.3 cm; Wt 90.7 kg
[2018-12-14] MEDS ORDERED: NITROGLYCERIN 0.4 MG SL TAB SL ONE (12:00)
[2018-12-14] MEDS ORDERED: ASPirin 81 mg TAB PO ONE (12:00)
[2018-12-14] MEDS ORDERED: SODIUM CHLORIDE 0.9% 1,000 ML IV ONE ×2 (12:07)
[2018-12-14 12:12] VITALS: BP 82/52
[2018-12-14] MEDS ORDERED: methylPREDNISolone SOD SUCC 125 MG/2 ML VL IV ONE (12:15)
== END 2018-12-14 12:29 | disposition left against medical advice (07) ==
LOC: EDBD 11:31 → ER 11:34
DX: I24.9 Acute ischemic heart disease, unspecified (principal); I95.9 Hypotension, unspecified; I10 Essential (primary) hypertension; I25.10 Atherosclerotic heart disease of native coronary artery without angina pectoris; E78.00 Pure hypercholesterolemia, unspecified; F17.210 Nicotine dependence, cigarettes, uncomplicated
CPT/HCPCS: 93005

== ENCOUNTER 2018-12-18 20:26 | Emergency (ER) | payer MEDICAID ==
[~2018-12-18] VITALS: Ht 185.4 cm; Wt 90.7 kg
[2018-12-18 21:01] VITALS: BP 105/71
[2018-12-18 21:17] LABS: Urine Bacteria FEW /hpf (None Seen); Urine Blood Negative /uL (Negative); Urine Hyaline Cast MOD /lpf (0 - 2); Urine Mucus FEW (None Seen); Urine Specific Gravity 1.018 (1.001-1.035); Urine WBC 16 /hpf (0 - 3)
[2018-12-18 21:19] LABS: Lymphocytes # (auto) 2.8 uL; Monocytes # (auto) 0.6 uL; Nucleated Red Blood Cells % 0.1 %
[2018-12-18 21:21] LABS: Basophils # (auto) 0.1 uL; Basophils % (auto) 0.6 % (0.0-2.0); Eosinophils # (auto) 0.3 uL; Eosinophils % (auto) 3.4 % (0.0-7.0); Hematocrit 45.3 % (41.0-53.0); Hemoglobin 15.6 g/dL (13.5-17.5); Lymphocytes % (auto) 33.9 % (10.0-50.0); Mean Corpuscular Hemoglobin 36.2 pg (28.0-32.0); Mean Corpuscular Hgb Conc. 34.4 g/dL (32.0-36.0); Mean Corpuscular Volume 105.2 fL (80.0-100.0); Monocytes % (auto) 7.9 % (0.0-12.0); Neutrophils # (auto) 4.5 uL; Neutrophils % (auto) 54.2 % (37.0-80.0); Platelet Count (auto) 213 10^3/uL (140-450); Red Blood Cells 4.31 10^6/uL (4.5-5.90); Red Cell Distribution Width 12.5 % (11.8-14.3); White Blood Cell 8.3 10^3/uL (4.4-10.8)
[2018-12-18 21:25] LABS: Amphetamine Screen, Urine NEGATIVE (NEGATIVE); Barbiturate Scree,Urine NEGATIVE (NEGATIVE); Benzodiazephine Screen, Urine POSITIVE (NEGATIVE); Cannabinoid Screen, Urine POSITIVE (NEGATIVE); Cocaine Screen, Urine NEGATIVE (NEGATIVE); Opiate Scree,Urine NEGATIVE (NEGATIVE); Phencyclidine Screen, Urine NEGATIVE (NEGATIVE)
[2018-12-18 21:37] LABS: Albumin 3.8 g/dL (3.4-5.0); Anion Gap 6 (5-15); Blood Urea Nitrogen 23 mg/dL (7-18); Calcium 8.8 mg/dL (8.5-10.1); Carbon Dioxide 27 mmol/L (21-32); Chloride 106 mmol/L (98-107); Glucose 100 mg/dL (74-106); Magnesium 2.5 mg/dL (1.6-2.6); Potassium 4.7 mmol/L (3.5-5.1); Sodium 139 mmol/L (136-145)
[2018-12-18 21:45] LABS: Alanine Aminotransferase 45 U/L (16-61); Alkaline Phosphatase 90 U/L (45-117); Aspartate Aminotransferase 31 U/L (15-37); BUN/Creatinine Ratio 10.9; Bilirubin, Total 0.2 mg/dL (0.2-1.0); GFR African American 42 mL/min; GFR Non-African American 35 mL/min; Total Protein 7.8 g/dL (6.4-8.2)
== END 2018-12-18 23:00 | disposition left against medical advice (07) ==
LOC: EDBD 20:26 → ER 20:29
DX: R07.9 Chest pain, unspecified (principal); Z53.21 Procedure and treatment not carried out due to patient leaving prior to being seen by health care provider
CPT/HCPCS: 36415; 80053; 80307; 80320; 81001; 83735; 84484; 85025; 93005

== ENCOUNTER 2018-12-19 08:47 | Emergency (ER) | payer MEDICAID ==
[~2018-12-19] VITALS: Ht 182.9 cm; Wt 81.6 kg
[2018-12-19 08:51] VITALS: BP 162/101
== END 2018-12-19 15:43 | disposition left against medical advice (07) ==
LOC: EDBD 08:47 → ER 08:47
DX: R07.9 Chest pain, unspecified (principal); Z53.21 Procedure and treatment not carried out due to patient leaving prior to being seen by health care provider
CPT/HCPCS: 71045; 93005

== ENCOUNTER 2018-12-19 20:36 | Emergency (ER) | payer MEDICAID ==
[~2018-12-19] VITALS: Ht 182.9 cm; Wt 81.6 kg
[2018-12-20] MEDS ORDERED: ceFAZolin 1GM/50ML 50 ML IV ONE (07:00)
[2018-12-20] MEDS ORDERED: TETANUS-DIPTH-ACEL PERTUSSIS 0.5ML SYRG IM ONE (07:15)
[2018-12-20 07:50] VITALS: BP 116/73
== END 2018-12-20 08:50 | disposition home or self-care (01) ==
LOC: EDBD 20:36 → ER 20:43
DX: S60.470A Other superficial bite of right index finger, initial encounter (principal); S60.371A Other superficial bite of right thumb, initial encounter; I25.10 Atherosclerotic heart disease of native coronary artery without angina pectoris; E78.5 Hyperlipidemia, unspecified; I10 Essential (primary) hypertension; F17.210 Nicotine dependence, cigarettes, uncomplicated; F12.90 Cannabis use, unspecified, uncomplicated; Z98.61 Coronary angioplasty status; W54.0XXA Bitten by dog, initial encounter; Y93.89 Activity, other specified; Y99.8 Other external cause status; Y92.89 Other specified places as the place of occurrence of the external cause
CPT/HCPCS: 90471; 90715; 93005; 94761; 96365; 99283; J0690

== ENCOUNTER 2018-12-21 19:30 | Emergency (ER) | payer MEDICAID ==
[~2018-12-21] VITALS: Ht 182.9 cm; Wt 83.9 kg
[2018-12-21 19:58] VITALS: BP 122/81
[2018-12-21 20:26] LABS: Eosinophils # (auto) 0 uL; Mean Corpuscular Hgb Conc. 34.4 g/dL (32.0-36.0); Nucleated Red Blood Cells % 0.1 %
[2018-12-21 20:28] LABS: Basophils # (auto) 0 uL; Basophils % (auto) 0.4 % (0.0-2.0); Eosinophils % (auto) 0.5 % (0.0-7.0); Hematocrit 43.9 % (41.0-53.0); Hemoglobin 15.1 g/dL (13.5-17.5); Lymphocytes # (auto) 2.5 uL; Lymphocytes % (auto) 24.8 % (10.0-50.0); Mean Corpuscular Hemoglobin 35.8 pg (28.0-32.0); Monocytes # (auto) 0.5 uL; Monocytes % (auto) 5.2 % (0.0-12.0); Neutrophils % (auto) 69.1 % (37.0-80.0); Platelet Count (auto) 215 10^3/uL (140-450); Red Blood Cells 4.22 10^6/uL (4.5-5.90); Red Cell Distribution Width 12.4 % (11.8-14.3); White Blood Cell 10.1 10^3/uL (4.4-10.8)
[2018-12-21 20:54] LABS: Alanine Aminotransferase 46 U/L (16-61); Albumin 4.1 g/dL (3.4-5.0); Anion Gap 12 (5-15); Aspartate Aminotransferase 40 U/L (15-37); BUN/Creatinine Ratio 17.2; Blood Urea Nitrogen 20 mg/dL (7-18); Calcium 8.3 mg/dL (8.5-10.1); Carbon Dioxide 20 mmol/L (21-32); Chloride 109 mmol/L (98-107); GFR African American 83 mL/min; GFR Non-African American 69 mL/min; Glucose 81 mg/dL (74-106); Magnesium 2.2 mg/dL (1.6-2.6); Potassium 3.8 mmol/L (3.5-5.1); Sodium 141 mmol/L (136-145)
[2018-12-21 20:59] LABS: Alkaline Phosphatase 88 U/L (45-117); Bilirubin, Total 0.4 mg/dL (0.2-1.0); Total Protein 7.9 g/dL (6.4-8.2)
== END 2018-12-21 22:52 | disposition left against medical advice (07) ==
LOC: ER 19:30 → EDBD 19:30 → ER 22:52
DX: R07.2 Precordial pain (principal); Z53.21 Procedure and treatment not carried out due to patient leaving prior to being seen by health care provider
CPT/HCPCS: 36415; 80053; 80320; 83735; 84484; 85025; 93005

== ENCOUNTER 2018-12-26 18:10 | Emergency (ER) | payer MEDICAID ==
[~2018-12-26] VITALS: Ht 177.8 cm; Wt 81.6 kg
[2018-12-26 18:19] VITALS: BP 130/56
== END 2018-12-26 21:00 | disposition left against medical advice (07) ==
LOC: ER 18:10 → EDBD 18:10 → ER 21:00
DX: R10.30 Lower abdominal pain, unspecified (principal); Z53.21 Procedure and treatment not carried out due to patient leaving prior to being seen by health care provider

== ENCOUNTER 2019-01-02 16:11 | Emergency (ER) | payer MEDICAID ==
[~2019-01-02] VITALS: Ht 172.7 cm; Wt 95.3 kg
[2019-01-02 17:58] LABS: Eosinophils # (auto) 0.2 uL; Hemoglobin 13.9 g/dL (13.5-17.5); Monocytes # (auto) 0.6 uL; Neutrophils # (auto) 3.9 uL
[2019-01-02 18:02] LABS: Basophils # (auto) 0 uL; Basophils % (auto) 0.4 % (0.0-2.0); Eosinophils % (auto) 3.1 % (0.0-7.0); Hematocrit 40.4 % (41.0-53.0); Lymphocytes # (auto) 2.6 uL; Lymphocytes % (auto) 35.2 % (10.0-50.0); Mean Corpuscular Hemoglobin 35.9 pg (28.0-32.0); Mean Corpuscular Hgb Conc. 34.3 g/dL (32.0-36.0); Mean Corpuscular Volume 104.6 fL (80.0-100.0); Monocytes % (auto) 8.4 % (0.0-12.0); Neutrophils % (auto) 52.9 % (37.0-80.0); Nucleated Red Blood Cells % 0.1 %; Platelet Count (auto) 239 10^3/uL (140-450); Red Blood Cells 3.86 10^6/uL (4.5-5.90); Red Cell Distribution Width 13.2 % (11.8-14.3); White Blood Cell 7.4 10^3/uL (4.4-10.8)
[2019-01-02 18:09] LABS: Alanine Aminotransferase 39 U/L (16-61); Albumin 3.4 g/dL (3.4-5.0); Anion Gap 6 (5-15); Aspartate Aminotransferase 29 U/L (15-37); Blood Urea Nitrogen 19 mg/dL (7-18); Calcium 8.4 mg/dL (8.5-10.1); Carbon Dioxide 26 mmol/L (21-32); Chloride 112 mmol/L (98-107); Glucose 94 mg/dL (74-106); Potassium 3.6 mmol/L (3.5-5.1); Sodium 144 mmol/L (136-145)
[2019-01-02 18:14] LABS: Alkaline Phosphatase 67 U/L (45-117); Bilirubin, Total 0.2 mg/dL (0.2-1.0); GFR African American 99 mL/min; GFR Non-African American 82 mL/min; Total Protein 7.1 g/dL (6.4-8.2)
[2019-01-02 18:16] LABS: INR 0.87 (0.9-1.15); Partial Thromboplastin Time 26.1 sec (23.78-33.04); Prothrombin Time 9.4 sec (9.27-12.13)
[2019-01-02 21:56] VITALS: BP 130/59
== END 2019-01-02 22:13 | disposition home or self-care (01) ==
LOC: ER 16:11 → EDBD 16:11 → ER 22:13
DX: K46.9 Unspecified abdominal hernia without obstruction or gangrene (principal); I25.10 Atherosclerotic heart disease of native coronary artery without angina pectoris; E78.5 Hyperlipidemia, unspecified; I10 Essential (primary) hypertension; F17.210 Nicotine dependence, cigarettes, uncomplicated; F12.90 Cannabis use, unspecified, uncomplicated; Z98.61 Coronary angioplasty status
CPT/HCPCS: 36415; 71045; 74176; 80053; 84484; 85025; 85610; 85730; 93005

== ENCOUNTER 2019-01-18 05:35 | Emergency (ER) | payer MEDICAID ==
[2019-01-18] MEDS ORDERED: MORPHINE SULFATE 4 MG/ML SYR/VIAL IV ONE ×2 (06:00→07:00)
[2019-01-18] MEDS ORDERED: ONDANSETRON HCL 4 MG/2 ML VIAL IV ONE (06:00)
[2019-01-18] MEDS ORDERED: NITROGLYCERIN 0.4 MG SL TAB SL ONE (06:30)
[2019-01-18] MEDS ORDERED: MORPHINE SULFATE 4 MG/ML SYR/VIAL ONE (06:50)
[2019-01-18 07:06] VITALS: BP 133/74
[2019-01-18 07:23] LABS: Basophils # (auto) 0 uL; Basophils % (auto) 0.4 % (0.0-2.0); Eosinophils # (auto) 0.2 uL; Hemoglobin 14.8 g/dL (13.5-17.5); Lymphocytes # (auto) 1.6 uL; Monocytes # (auto) 0.4 uL; White Blood Cell 6.2 10^3/uL (4.4-10.8)
[2019-01-18 07:26] LABS: Eosinophils % (auto) 2.9 % (0.0-7.0); Hematocrit 44.4 % (41.0-53.0); Lymphocytes % (auto) 26.5 % (10.0-50.0); Mean Corpuscular Hemoglobin 35.5 pg (28.0-32.0); Mean Corpuscular Hgb Conc. 33.3 g/dL (32.0-36.0); Mean Corpuscular Volume 106.5 fL (80.0-100.0); Monocytes % (auto) 6.4 % (0.0-12.0); Neutrophils % (auto) 63.8 % (37.0-80.0); Platelet Count (auto) 214 10^3/uL (140-450); Red Blood Cells 4.17 10^6/uL (4.5-5.90); Red Cell Distribution Width 14.2 % (11.8-14.3)
[2019-01-18 07:39] LABS: INR 0.86 (0.9-1.15); Partial Thromboplastin Time 28.2 sec (23.78-33.04); Prothrombin Time 9.3 sec (9.27-12.13)
[2019-01-18 07:40] LABS: Alanine Aminotransferase 65 U/L (16-61); Albumin 3.5 g/dL (3.4-5.0); Anion Gap 8 (5-15); Aspartate Aminotransferase 52 U/L (15-37); BUN/Creatinine Ratio 15.9; Blood Urea Nitrogen 13 mg/dL (7-18); Calcium 8.7 mg/dL (8.5-10.1); Carbon Dioxide 26 mmol/L (21-32); Chloride 113 mmol/L (98-107); GFR African American 125 mL/min; GFR Non-African American 103 mL/min; Glucose 107 mg/dL (74-106); Potassium 4.2 mmol/L (3.5-5.1); Sodium 147 mmol/L (136-145)
[2019-01-18 07:45] LABS: Alkaline Phosphatase 81 U/L (45-117); Bilirubin, Total 0.2 mg/dL (0.2-1.0); Total Protein 7.4 g/dL (6.4-8.2)
== END 2019-01-18 07:50 | disposition left against medical advice (07) ==
LOC: ER 05:35 → EDBD 05:35 → ER 07:50
DX: I24.9 Acute ischemic heart disease, unspecified (principal); I10 Essential (primary) hypertension; E78.5 Hyperlipidemia, unspecified; I25.2 Old myocardial infarction; F17.210 Nicotine dependence, cigarettes, uncomplicated; F12.10 Cannabis abuse, uncomplicated; Z98.61 Coronary angioplasty status
CPT/HCPCS: 36415; 71045; 80053; 83880; 84484; 85025; 85610; 85730; 93005; 96374; 96375; 99284; J2270; J2405

== ENCOUNTER 2019-01-18 17:02 | Emergency (ER) | payer MEDICAID ==
[~2019-01-18] VITALS: Ht 182.9 cm; Wt 99.8 kg
[2019-01-18 17:28] VITALS: BP 131/92
== END 2019-01-18 23:50 | disposition left against medical advice (07) ==
LOC: EDUNIT# 17:02 → EDBD 17:02 → ER 17:04
DX: R07.89 Other chest pain (principal); F10.920 Alcohol use, unspecified with intoxication, uncomplicated; I25.2 Old myocardial infarction; I10 Essential (primary) hypertension; F17.210 Nicotine dependence, cigarettes, uncomplicated; F12.10 Cannabis abuse, uncomplicated; Z98.61 Coronary angioplasty status; Z53.29 Procedure and treatment not carried out because of patient's decision for other reasons; Y90.0 Blood alcohol level of less than 20 mg/100 ml

== ENCOUNTER 2019-11-09 17:22 | Emergency (ER) | payer MEDICAID ==
[~2019-11-09] VITALS: Ht 182.9 cm; Wt 90.7 kg
[2019-11-09 17:57] LABS: Basophils # (auto) 0 uL; Eosinophils # (auto) 0.2 uL; Eosinophils % (auto) 2.5 % (0.0-7.0); Monocytes # (auto) 0.6 uL
[2019-11-09 17:59] LABS: Basophils % (auto) 0.3 % (0.0-2.0); Hematocrit 38.8 % (41.0-53.0); Hemoglobin 13.2 g/dL (13.5-17.5); Lymphocytes # (auto) 2.5 uL; Lymphocytes % (auto) 33.3 % (10.0-50.0); Mean Corpuscular Hemoglobin 36.8 pg (28.0-32.0); Mean Corpuscular Hgb Conc. 34.1 g/dL (32.0-36.0); Mean Corpuscular Volume 107.8 fL (80.0-100.0); Monocytes % (auto) 7.8 % (0.0-12.0); Neutrophils # (auto) 4.3 uL; Neutrophils % (auto) 56.1 % (37.0-80.0); Platelet Count (auto) 222 10^3/uL (140-450); Red Blood Cells 3.59 10^6/uL (4.5-5.90); Red Cell Distribution Width 14.1 % (11.8-14.3); White Blood Cell 7.6 10^3/uL (4.4-10.8)
[2019-11-09 18:13] LABS: INR 0.99 (0.9-1.15); Partial Thromboplastin Time 28.1 sec (23.64-32.05)
[2019-11-09 18:15] LABS: Anion Gap 10 (5-15); Blood Urea Nitrogen 6 mg/dL (7-18); Calcium 8.3 mg/dL (8.5-10.1); Carbon Dioxide 24 mmol/L (21-32); Chloride 115 mmol/L (98-107); Glucose 90 mg/dL (74-106); Potassium 3.3 mmol/L (3.5-5.1); Sodium 149 mmol/L (136-145)
[2019-11-09 18:17] LABS: GFR African American 85 mL/min; GFR Non-African American 70 mL/min
[2019-11-09 18:29] LABS: Alanine Aminotransferase 38 U/L (16-61); Alkaline Phosphatase 73 U/L (45-117); Aspartate Aminotransferase 35 U/L (15-37); Bilirubin, Total 0.2 mg/dL (0.2-1.0); Total Protein 6.8 g/dL (6.4-8.2)
[2019-11-09] MEDS ORDERED: SODIUM CHLORIDE 0.9% 1,000 ML IV ONE (18:30)
[2019-11-09 18:32] VITALS: BP 107/65
[2019-11-09 18:34] LABS: Amphetamine Screen, Urine NEGATIVE (NEGATIVE); Barbiturate Scree,Urine NEGATIVE (NEGATIVE); Benzodiazephine Screen, Urine NEGATIVE (NEGATIVE); Cannabinoid Screen, Urine POSITIVE (NEGATIVE)
[2019-11-09 18:43] LABS: Cocaine Screen, Urine NEGATIVE (NEGATIVE); Opiate Scree,Urine NEGATIVE (NEGATIVE); Phencyclidine Screen, Urine NEGATIVE (NEGATIVE)
[2019-11-09 18:51] LABS: BUN/Creatinine Ratio 5.3
[2019-11-09] MEDS ORDERED: SODIUM CHLORIDE 0.9% 1,000 ML IVB ONE (19:00)
[2019-11-09] MEDS ORDERED: THIAMINE 100mg/ml INJ (200mg/2ml VIAL) IV ONE (19:00)
[2019-11-09 19:06] LABS: Urine WBC None Seen /hpf (0 - 3)
[2019-11-09 19:14] LABS: Urine Bacteria NONE SEEN /hpf (None Seen); Urine Blood Negative /uL (Negative); Urine Specific Gravity 1.002 (1.001-1.035)
[2019-11-09] MEDS ORDERED: ACETAMINOPHEN 325 MG TAB PO ONE (20:15)
[2019-11-10] MEDS ORDERED: FOLIC ACID 1 MG, MULTIPLE VITAMIN 10 ML, MAGNESIUM SULF SDV 50% 8 MEQ, THIAMINE INJ 100... INJ SCH ×5 (12:00)
== END 2019-11-09 20:10 | disposition left against medical advice (07) ==
LOC: EDBD 17:22 → EDUNIT# 17:22 → ER 17:25
DX: R07.89 Other chest pain (principal); F10.129 Alcohol abuse with intoxication, unspecified; E87.0 Hyperosmolality and hypernatremia; E87.6 Hypokalemia; F12.10 Cannabis abuse, uncomplicated; I10 Essential (primary) hypertension; E11.9 Type 2 diabetes mellitus without complications; I25.10 Atherosclerotic heart disease of native coronary artery without angina pectoris; E78.5 Hyperlipidemia, unspecified; I25.2 Old myocardial infarction; F17.210 Nicotine dependence, cigarettes, uncomplicated; Y90.8 Blood alcohol level of 240 mg/100 ml or more; Z98.890 Other specified postprocedural states; Z59.0 Homelessness
CPT/HCPCS: 36415; 71045; 80053; 80307; 80320; 81001; 83735; 84484; 85025; 85610; 85730; 93005; 96365; 96375; 99284; J3411; J7030

== ENCOUNTER 2019-11-09 20:26 | Emergency (ER) | payer MEDICAID ==
[~2019-11-09] VITALS: Ht 182.9 cm; Wt 90.7 kg
[2019-11-09] MEDS: SODIUM CHLORIDE 0.9% 1,000 ML IV ONE (23:20)
[2019-11-09] MEDS: THIAMINE INJ 100 MG in SODIUM CHLORIDE 0.9% 1,000 ML IV ONE ×2 (23:21→23:34)
[2019-11-09] MEDS ORDERED: THIAMINE 100mg/ml INJ (200mg/2ml VIAL) ONE (23:33)
[2019-11-10] MEDS ORDERED: IOHEXOL 350 MG/ML 100ML IJ ONE (00:12)
[2019-11-10 00:30] VITALS: BP 110/53
[2019-11-10] MEDS: SODIUM CHLORIDE 0.9% 1,000 ML IV ONE (00:48)
== END 2019-11-10 03:22 | disposition home or self-care (01) ==
LOC: ER 20:26
DX: R07.89 Other chest pain (principal); F10.20 Alcohol dependence, uncomplicated; I25.2 Old myocardial infarction; I10 Essential (primary) hypertension; E78.5 Hyperlipidemia, unspecified; F17.210 Nicotine dependence, cigarettes, uncomplicated; F12.10 Cannabis abuse, uncomplicated; Y90.0 Blood alcohol level of less than 20 mg/100 ml; Z86.73 Personal history of transient ischemic attack (TIA), and cerebral infarction without residual deficits
CPT/HCPCS: 71275; 93005; 96365; 99284; J3411; J7030; Q9967

== ENCOUNTER 2020-01-12 19:01 | Inpatient (IN) | payer MEDICAID ==
[~2020-01-12] VITALS: Ht 182.9 cm; Wt 190.7 kg
[~2020-01-12 19:01] MED LIST: ASPI81CH43 PO; ATOR20TA50 PO; CLOP75TA28 PO; FAM20T PO; LISI10TA6 PO; MET25T PO; NICO14DI9 TD; NIFE1TAB31 PO; NITR0.4S29 SL
[2020-01-12 20:35] LABS: Basophils # (auto) 0 uL; Eosinophils # (auto) 0.1 uL; Lymphocytes # (auto) 2.6 uL; Monocytes # (auto) 0.4 uL; Nucleated Red Blood Cells % 0.1 %; Red Blood Cells 4.08 10^6/uL (4.5-5.90); White Blood Cell 7.2 10^3/uL (4.4-10.8)
[2020-01-12 20:38] LABS: Basophils % (auto) 0.5 % (0.0-2.0); Eosinophils % (auto) 1.6 % (0.0-7.0); Hematocrit 43.7 % (41.0-53.0); Lymphocytes % (auto) 36.8 % (10.0-50.0); Mean Corpuscular Hemoglobin 36.9 pg (28.0-32.0); Mean Corpuscular Hgb Conc. 34.4 g/dL (32.0-36.0); Mean Corpuscular Volume 107.3 fL (80.0-100.0); Monocytes % (auto) 5.3 % (0.0-12.0); Neutrophils % (auto) 55.8 % (37.0-80.0); Platelet Count (auto) 122 10^3/uL (140-450); Red Cell Distribution Width 16.1 % (11.8-14.3)
[2020-01-12 21:00] LABS: Albumin 3.6 g/dL (3.4-5.0); Anion Gap 6 (5-15); Blood Urea Nitrogen 11 mg/dL (7-18); Calcium 8.5 mg/dL (8.5-10.1); Carbon Dioxide 29 mmol/L (21-32); Chloride 108 mmol/L (98-107); Glucose 89 mg/dL (74-106); Potassium 3.6 mmol/L (3.5-5.1); Sodium 143 mmol/L (136-145)
[2020-01-12 21:07] LABS: Alanine Aminotransferase 94 U/L (16-61); Alkaline Phosphatase 102 U/L (45-117); Aspartate Aminotransferase 150 U/L (15-37); Bilirubin, Total 0.4 mg/dL (0.2-1.0); GFR African American 88 mL/min; GFR Non-African American 73 mL/min; Total Protein 7.8 g/dL (6.4-8.2)
[2020-01-13] MEDS ORDERED: cloNIDine HCL 0.1 MG TAB PO ONE (08:00)
[2020-01-13] MEDS ORDERED: PROMETHAZINE HCL 25 MG/ML 1ML IV ONE (08:00)
[2020-01-13] MEDS ORDERED: ASPirin 81 mg TAB PO ONE ×2 (08:15→10:00)
[2020-01-13] MEDS ORDERED: NITROGLYCERIN 0.4 MG SL TAB SL ONE (08:15)
[2020-01-13 10:09] LABS: Urine Bacteria NONE SEEN /hpf (None Seen); Urine Blood 1+ /uL (Negative); Urine Specific Gravity 1.016 (1.001-1.035); Urine WBC 1 /hpf (0 - 3)
[2020-01-13] MEDS ORDERED: MORPHINE SULF INJ 2 MG/ML SYRINGE 1ML IM ONE (11:00)
[2020-01-13] MEDS ORDERED: MORPHINE SULF INJ 2 MG/ML SYRINGE 1ML IV ONE (11:15)
[2020-01-13] MEDS ORDERED: NITROGLYCERIN 0.4 MG SL TAB SL PRN (11:30)
[2020-01-13] MEDS ORDERED: CLOPIDOGREL 300 MG TAB PO ONE (11:30)
[2020-01-13] MEDS ORDERED: HYDROcodone-ACET 5/325MG TAB PO PRN (11:30)
[2020-01-13] MEDS ORDERED: ACETAMINOPHEN 500 MG TAB PO PRN (11:30)
[2020-01-13] MEDS ORDERED: ONDANSETRON HCL 4 MG/2 ML VIAL IV PRN (11:30)
[2020-01-13] MEDS ORDERED: MORPHINE SULF INJ 2 MG/ML SYRINGE 1ML IV PRN (11:30)
[2020-01-13 12:11] LABS: Amphetamine Screen, Urine NEGATIVE (NEGATIVE); Barbiturate Scree,Urine NEGATIVE (NEGATIVE); Benzodiazephine Screen, Urine NEGATIVE (NEGATIVE); Cannabinoid Screen, Urine POSITIVE (NEGATIVE); Cocaine Screen, Urine NEGATIVE (NEGATIVE); Opiate Scree,Urine NEGATIVE (NEGATIVE); Phencyclidine Screen, Urine NEGATIVE (NEGATIVE)
[2020-01-13 13:15] VITALS: BP 148/81
[2020-01-13 14:37] LABS: CRP High Sensitivity 0.32 mg/dL (< 0.3)
[2020-01-13] MEDS: MORPHINE SULF INJ 2 MG/ML SYRINGE 1ML IV PRN ×3 (14:58→23:03)
[2020-01-13] MEDS: hydrALAZINE HCL 20 MG/ML VL IV PRN ×2 (15:05→23:04)
[2020-01-13] MEDS ORDERED: LABETALOL HCL 5 MG/ML 4ML SYRINGE IV ONE (15:45)
[2020-01-13] MEDS ORDERED: LORazepam 2MG/ML-1ML VIAL IM ONE (15:45)
[2020-01-13] MEDS ORDERED: LABETALOL HCL 5 MG/ML ML 20ML VIAL IV ONE (16:02)
[2020-01-13 17:00] VITALS: BP 170/119
[2020-01-13] MEDS: METOPROLOL TARTRATE 25 MG TAB PO SCH (21:31)
[2020-01-13 22:00] VITALS: BP 162/118
[2020-01-14 05:00] VITALS: BP 183/114
[2020-01-14] MEDS: MORPHINE SULF INJ 2 MG/ML SYRINGE 1ML IV PRN ×2 (05:09→11:01)
[2020-01-14] MEDS: hydrALAZINE HCL 20 MG/ML VL IV PRN ×2 (05:09→13:18)
[2020-01-14 09:00] VITALS: BP 148/87
[2020-01-14] MEDS ORDERED: LISINOPRIL 10 MG TAB PO SCH (10:00)
[2020-01-14] MEDS ORDERED: ASPirin-EC 81 mg tab PO SCH (10:00)
[2020-01-14] MEDS ORDERED: CLOPIDOGREL BISULFATE 75 MG TAB PO SCH (10:00)
[2020-01-14] MEDS: METOPROLOL TARTRATE 25 MG TAB PO SCH (11:02)
[2020-01-14] MEDS ORDERED: PANTOPRAZOLE 40 MG TAB PO ONE (11:15)
[2020-01-14] MEDS ORDERED: chlordiazePOXIDE HCL 25 MG CAP PO PRN (11:15)
[2020-01-14] MEDS ORDERED: LORazepam 2MG/ML-1ML VIAL IV ONE (11:15)
[2020-01-14] MEDS ORDERED: FOLIC ACID 1 MG, MULTIPLE VITAMIN 10 ML, MAGNESIUM SULF SDV 50% 8 MEQ, THIAMINE INJ 100... INJ SCH ×5 (12:00)
[2020-01-14 12:11] LABS: Basophils # (auto) 0 uL; Lymphocytes # (auto) 0.8 uL; Monocytes # (auto) 0.6 uL; Neutrophils # (auto) 4.8 uL; Nucleated Red Blood Cells % 0.1 %
[2020-01-14 12:14] LABS: Basophils % (auto) 0.4 % (0.0-2.0); Eosinophils # (auto) 0 uL; Eosinophils % (auto) 0.8 % (0.0-7.0); Hematocrit 47.4 % (41.0-53.0); Hemoglobin 16.3 g/dL (13.5-17.5); Lymphocytes % (auto) 12.5 % (10.0-50.0); Mean Corpuscular Hemoglobin 37.1 pg (28.0-32.0); Mean Corpuscular Hgb Conc. 34.4 g/dL (32.0-36.0); Mean Corpuscular Volume 107.7 fL (80.0-100.0); Monocytes % (auto) 9.1 % (0.0-12.0); Neutrophils % (auto) 77.2 % (37.0-80.0); Platelet Count (auto) 111 10^3/uL (140-450); Red Cell Distribution Width 16.5 % (11.8-14.3); White Blood Cell 6.3 10^3/uL (4.4-10.8)
[2020-01-14 12:26] LABS: INR 0.96 (0.9-1.15); Partial Thromboplastin Time 31.9 sec (23.64-32.05)
[2020-01-14 12:39] LABS: Folate (Folic Acid) 9.09 ng/mL (5.38-24)
[2020-01-14 12:51] LABS: BUN/Creatinine Ratio 11.3; Calcium 9.1 mg/dL (8.5-10.1); Magnesium 1.9 mg/dL (1.6-2.6); Potassium 4.4 mmol/L (3.5-5.1)
[2020-01-14 13:00] VITALS: BP 164/102
[2020-01-15] MEDS ORDERED: PANTOPRAZOLE 40 MG TAB PO SCH (10:00)
== END 2020-01-14 14:10 | disposition left against medical advice (07) | DRG 198 ==
LOC: ER 19:01 → TELE 19:02 → TELE-EAST 01-13 13:00
PROVIDERS: ADMIT Nurse Practitioner Acute Care; ATTEND Specialist
DX: R07.89 Other chest pain (principal); I25.10 Atherosclerotic heart disease of native coronary artery without angina pectoris; E78.5 Hyperlipidemia, unspecified; F10.239 Alcohol dependence with withdrawal, unspecified; I10 Essential (primary) hypertension; Z53.29 Procedure and treatment not carried out because of patient's decision for other reasons; F12.10 Cannabis abuse, uncomplicated; F17.210 Nicotine dependence, cigarettes, uncomplicated; I25.2 Old myocardial infarction; Z59.0 Homelessness; Z79.02 Long term (current) use of antithrombotics/antiplatelets; Z79.82 Long term (current) use of aspirin; Z95.5 Presence of coronary angioplasty implant and graft; Z91.14 Patient's other noncompliance with medication regimen; Z80.3 Family history of malignant neoplasm of breast; Z82.49 Family history of ischemic heart disease and other diseases of the circulatory system; Z91.19 Patient's noncompliance with other medical treatment and regimen
CPT/HCPCS: 36415; 71046; 80048; 80053; 80061; 80307; 81001; 82607; 82746; 83036; 83735; 84439; 84443; 84484; 85025; 85610; 85730; 86141; 87081; 93005; 96372; 96374; 96375; G0378

== ENCOUNTER → 2020-01-15 | Emergency (ER) | payer MEDICAID ==
[~2020-01-15] VITALS: Ht 185.4 cm; Wt 81.6 kg
[~2020-01-15] MED LIST changes: +MIDAZOLAM DRIP 50 mg/50mL 50 ML IV ONE; +MIDAZOLAM DRIP 50 mg/50mL 50 ML IV SCH; +NALOXONE HCL 1MG/ML 2ML SYRINGE IV ONE; +PROPOFOL 100 ML IV ONE; +PROPOFOL 100 ML IV SCH; +fentaNYL Drip 2500mCg/250mlNS 250 ML IV SCH
[2020-01-15 16:36] LABS: Red Blood Cells 4.48 10^6/uL (4.5-5.90)
[2020-01-15 16:39] LABS: Hematocrit 48.8 % (41.0-53.0); Hemoglobin 16.3 g/dL (13.5-17.5); Mean Corpuscular Hemoglobin 36.4 pg (28.0-32.0); Mean Corpuscular Hgb Conc. 33.4 g/dL (32.0-36.0); Platelet Count (auto) 145 10^3/uL (140-450); Red Cell Distribution Width 16.3 % (11.8-14.3); White Blood Cell 13.7 10^3/uL (4.4-10.8)
[2020-01-15 16:52] LABS: Albumin 3.8 g/dL (3.4-5.0); BUN/Creatinine Ratio 15.3; Calcium 8.7 mg/dL (8.5-10.1); Potassium 3.3 mmol/L (3.5-5.1)
[2020-01-15 16:54] LABS: Amphetamine Screen, Urine NEGATIVE (NEGATIVE); Band Neutrophils % (manual) 0; Barbiturate Scree,Urine NEGATIVE (NEGATIVE); Basophils % (manual) 0 (0.0-2.0); Benzodiazephine Screen, Urine POSITIVE (NEGATIVE); Blast Cells 0; Cannabinoid Screen, Urine POSITIVE (NEGATIVE); Cocaine Screen, Urine NEGATIVE (NEGATIVE); Eosinophils % (manual) 0 (0-7); Metamyelocytes % 0; Myelocytes % 0; Phencyclidine Screen, Urine NEGATIVE (NEGATIVE); Promyelocytes % 0; Reactive Lymphocytes 0
[2020-01-15 16:57] LABS: Bilirubin, Total 0.8 mg/dL (0.2-1.0); Total Protein 8.9 g/dL (6.4-8.2)
[2020-01-15 16:59] LABS: INR 0.97 (0.9-1.15); Partial Thromboplastin Time 28.8 sec (23.64-32.05)
[2020-01-15 17:01] LABS: Opiate Scree,Urine NEGATIVE (NEGATIVE)
[2020-01-15 17:03] VITALS: BP 126/86
[2020-01-15 17:07] LABS: Salicylate 3.1 mg/dL (2.8-20.0)
[2020-01-15 17:40] LABS: Urine Bacteria NONE SEEN /hpf (None Seen); Urine Blood 1+ /uL (Negative); Urine Hyaline Cast FEW /lpf (0 - 2); Urine Specific Gravity 1.013 (1.001-1.035); Urine WBC 8 /hpf (0 - 3)
[2020-01-15 18:04] LABS: Lymphocytes % (manual) 7 (10.0-50.0); Monocytes % (manual) 5 (0-12)
[2020-01-15 18:19] LABS: Acetaminophen < 2.0 ug/mL (10-30)
== END | disposition short-term general hospital (02) ==
LOC: EDUNIT# 14:49 → EDBD 15:08 → ER 15:08
DX: S06.6X0A Traumatic subarachnoid hemorrhage without loss of consciousness, initial encounter (principal); R41.82 Altered mental status, unspecified; I10 Essential (primary) hypertension; E11.21 Type 2 diabetes mellitus with diabetic nephropathy; I24.9 Acute ischemic heart disease, unspecified; E87.6 Hypokalemia; F10.10 Alcohol abuse, uncomplicated; F17.210 Nicotine dependence, cigarettes, uncomplicated; E78.5 Hyperlipidemia, unspecified; I25.2 Old myocardial infarction; F12.10 Cannabis abuse, uncomplicated; F15.10 Other stimulant abuse, uncomplicated; F14.10 Cocaine abuse, uncomplicated; Z86.19 Personal history of other infectious and parasitic diseases; Z79.899 Other long term (current) drug therapy; Z79.4 Long term (current) use of insulin; Y90.9 Presence of alcohol in blood, level not specified; W18.11XA Fall from or off toilet without subsequent striking against object, initial encounter; Y93.89 Activity, other specified; Y92.091 Bathroom in other non-institutional residence as the place of occurrence of the external cause; Y99.8 Other external cause status
CPT/HCPCS: 31500; 36415; 36600; 51702; 70450; 71045; 72125; 80053; 80307; 80320; 80329; 81001; 82805; 83735; 84484; 85007; 85027; 85610; 85730; 87070; 87077; 87186; 87205; 93005; 99291; J2250; J2704; 94002; 96374